=== PATIENT | male | born 1975 | race Caucasian/White ===

== ENCOUNTER 2024-09-19 15:29 | Inpatient (IN) | payer BC, SELFPAY ==
--- NOTE | ~2024-09-19 | CT_ITS ---
EXAMINATION: CT abdomen pelvis w con DATE: 09/19/2024 18:01 INDICATION: lower abd pain TECHNIQUE: Computed tomography (CT) of the abdomen and pelvis was performed with 100 mL Omnipaque-350 intravenous contrast. Automated exposure control and iterative reconstruction technique were employe d. The dose-length product was 578.48 mGy-cm. COMPARISON: None. FINDINGS: Lower thorax: Unremarkable Liver: Normal. Biliary/Gallbladder: Gallbladder is normal. No bile duct dilation. Pancreas: No mass or duct dilation. Spleen: Normal. Adrenals:No mass. Kidneys: No suspicious mass, obstructing stone, or hydronephrosis. Subsegmental bilateral hypodensiti es, too small to characterize but most likely represent cysts. Accessory renal vessels bilaterally. GI tract: Mild distal esophageal wall edema. No large bowel dilation. Loops of mildly dilated and bor derline dilated small bowel in the left upper abdomen, with prominent adjacent lymph nodes, and mesen teric edema. Surgically absent appendix. Scattered diverticuli. Short segment proximal sigmoid wall t hickening, with a 1.2 cm fluid density mildly rim-enhancing collection in the bowel wall, and irregul ar 1.9 x 0.9 cm extraluminal gas collection, and moderate surrounding inflammatory changes. Mesentery/Peritoneum: No ascites, mass, or free air. Retroperitoneum: No mass. Pelvis: Pelvic organs are within normal limits. Soft Tissues: Small uncomplicated fat-containing umbilical hernia. Bones: No acute osseous finding. IMPRESSION: Mild esophagitis. Complicated sigmoid diverticulitis with contained perforation and possible early intramural abscess. Proximal small bowel dilation, probably related to ileus/enteritis. Early obstruction not excluded. Reviewed, dictated and finalized at location K. IMPRESSION: Mild esophagitis. Complicated sigmoid diverticulitis with contained perforation and possible trever y intramural abscess. Proximal small bowel dilation, probably related to ileus/enteritis. Early obstr uction not excluded.
--- OUTSIDE RECORDS SUMMARY | 2024-09-19 15:31 | XMS_ITS | Referral Summary ---
Author Organization [address] [facility] [employer] Address [address] [place] [id number] Care Team Providers Care Outsole Molder Name Role Phone Booker Moran MD Primary Care Provider [phone] Encounters Date Type Department Care Team Description 09/19/2024 2:30 PM CDT Office Visit [facility] [place] [address] [place] [address] Melanie Hamm, EVERARDO Abdominal pain (Primary Dx); Urine ketones from Last 3 Months Allergies No known active allergies Medications testosterone cypionate (DEPO-TESTOTERO NE) 200 mg/mL injection INJECT 0.5 ML( 100 MG) IN THE MUSCLE ONCE A WEEK DIRECTED 10 mL 02/04/2023 Active Active Problems Problem Noted Date Diagnosed Date Acute appendicitis 04/24/2020 Assessment & Plan (04/30/2020 9:47 AM LEAN MANUFACTURING LEADER): Pathology reviewed as appendicitis. ASHLEY drain will be removed at bedside. Given the appendicitis in age of 43 I have discussed a colonoscopy may not be a bad idea just to ensure no underlying colonic pathology as the cause of the appendicitis. He is in understanding. Would continue light duty for further week and then slowly ease back into things. Triceps tendinitis 12/17/2014 Testicular hypofunction 09/23/2013 Overview (08/12/2016): TESTICULAR HYPOFUNC NEC Assessment & Plan (04/30/2022 12:29 PM LEAN MANUFACTURING LEADER): Chronic problem, overall stable. Will update testosterone rx at this time but he needs to have labs drawn as his CBC was borderline elevated last year. He understands. Will mail him lab slips. Assessment & Plan (01/16/2021 3:18 PM CDT): Increase CV with elevated H/H form T was discussed Pt would like to continue current dose of T Will recheck H/H in 3 m, if persistently elevated, will have to lower dose. Assessment & Plan (02/13/2020 4:13 PM CDT): Increase testosterone to 100 mg week Will check CBC in 3 months Assessment & Plan (03/29/2019 5:13 PM LEAN MANUFACTURING LEADER): Check CBC, PSA, T levels Continue T replacement. Assessment & Plan (02/22/2018 3:48 PM CDT): Check cbc, cmp Continue T replacement. 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 Immunizations Immunization Administration Dates Next Due Influenza, Split 04/19/2013,02/04/2010 Influenza, Unspecified 04/24/2020(Deferred: Kallie ent Refused) Social History Tobacco Use Types Packs/Day Years Used Date Smoking Tobacco: Never Tobacco Cessation:Counseling Given: Not Answered Alcohol Use Standard Drinks/Week Comments Yes 0 (1 standard drink = 0.6 oz pur e alcohol) PHQ-2 Answer Date Recorded PHQ-2 Total Score (If total score is 3 or more points, staff should administer the PHQ-9) 0 04/24/2020 Sex and Gender Information Value Date Recorded Sex Assigned at Not on file Legal Sex Male 11:53 PM LEAN MANUFACTURING LEADER Gender Identity Not on file Sexual Orientation Not on file Last Filed Vital Signs Vital Sign Reading Time Taken Comments Blood Pressure 130/88 09/19/2024 2:39 PM CDT Pulse 116 09/19/2024 2:39 PM CDT Temperature 36.9 C (98.4 F) 09/19/2024 2:39 PM CDT Respiratory Rate 16 09/19/2024 2:39 PM CDT Oxygen Saturation 98% 09/19/2024 2:39 PM CDT Inhaled Oxygen Concentration - - Weight 93 kg (205 lb) 09/19/2024 2:39 PM CDT Height 188 cm (6' 2 ) 09/19/2024 2:39 PM CDT Body Mass Index 26.32 09/19/2024 2:39 PM CDT Plan of Treatment Not on file Procedures Procedure Name Priority Date/Time Associated Diagnosis Comments POCT GLUCOSE Routine 09/19/2024 3:00 PM CDT Abdominal pain POCT URINALYSIS DIPSTICK Routine 09/19/2024 2:52 PM CDT Abdominal pain PSA SCREEN Routine 11/26/2022 11:44 AM CDT from Last 3 Months or Most Recently Relevant to Health Maintenance Results * POCT glucose (09/19/2024 3:00 PM CDT) Glucose Blood, POC 111 Normal Fasting 70 - 100, Random <200 mg/dL Blood 09/19/2024 3:00 PM CDT Melanie Hamm NP POINT OF CARE TEST ORDERABLES Fi nal Result * (ABNORMAL) POCT urinalysis dipstick (09/19/2024 2:52 PM CDT) Color, Urine, POC Yellow Clarity, ur, POC Clear Clear Glucose, ur, POC Negative Negative Bilirubin, ur, POC Negative Negative Ketones, ur, POC Trace(A) Negative Specific [place], POC 1.020 1.003 - 1.030 Blood, ur, POC Trace(A) Negative pH, ur, POC 7.5 5.0 - 8.0 Protein, ur, POC 30.(A) Negative Urobilinogen, urine, POC 1.0 0.2 - 1.0 mg/dL Nitrite, ur, POC Negative Negative Leukocytes, ur, POC Negative Negative Lot Number [id number] Urine 09/19/2024 2:52 PM CDT Melanie Hamm NP POINT OF CARE TEST ORDERABLES Fi nal Result * PSA screen (11/26/2022 11:44 AM CDT) PSA 0.34 < OR = 4.00 ng/mL [facility] Comment: The total PSA value from this assay system is standardized against the WHO standard. The test result will be approximately 20% lower when compared to the equimolar-standardized total PSA (Radha Cipriano). Comparison of serial PSA results should be interpreted with this fact in mind. This test was performed using the Siemens chemiluminescent method. Values obtained from different assay methods cannot be used interchangeably. PSA levels, regardless of value, should not be interpreted as absolute evidence of the presence or absence of disease. 11/26/2022 11:4 4 AM CDT 11/26/2022 11:46 AM CDT Melanie Solorzano MD LAB BLOOD ORDERABLES Final Resul t [facility] [address] [place] [address] from Last 3 Months or Most Recently Relevant to Health Maintenance Insurance [facility] PPO [place] Advance Directives For more information, please contact: [phone] * Full Code (Latest Code Status on File) Date Activated Date Inactivated Comments 04/24/2020 8:43 PM 04/25/2020 1:54 PM Care Teams Outsole Molder Relationship Specialty Start Date End Date Booker Moran MD PCP - General 08/07/16
--- OUTSIDE RECORDS SUMMARY | 2024-09-19 15:31 | XMS_ITS | Encounter Summary ---
Author Organization [facility] Healthcare Address [address] [place] [id number] Care Team Providers Care Route Rider Supervisor Name Role Phone Booker Moran MD Primary Care Provider [phone] Reason for Visit * Reason Comments Abdominal Pain Lower abd pain. Onse t yesterday Encounter Details Date Type Department Care Team ([facility] st Contact Info) Description 09/19/2024 2:30 PM CDT Office Visit [facility] [place] [address] [place] [address] Melanie Hamm, EVERARDO [address] [facility] [place] [address] Abdominal pain (Primary Dx); Urine ketones Social History Tobacco Use Types Packs/Day Years Used Date Smoking Tobacco: Never Alcohol Use Standard Drinks/Week Comments Yes 0 (1 standard drink = 0.6 oz pur e alcohol) PHQ-2 Answer Date Recorded PHQ-2 Total Score (If total score is 3 or more points, staff should administer the PHQ-9) 0 04/24/2020 Sex and Gender Information Value Date Recorded Sex Assigned at Not on file Legal Sex Male 11:53 PM PETROLEUM REFINERY OPERATOR Gender Identity Not on file Sexual Orientation Not on file documented as of this encounter Last Filed Vital Signs Vital Sign Reading [...] Mass Index 26.32 09/19/2024 2:39 PM CDT documented in this encounter Patient Instructions * Patient Instructions* Melanie Hamm NP - 09/19/2024 2:30 PM CDT Go immediately to ED for further workup documented in this encounter Plan of Treatment Not on file documented as of this encounter Procedures Procedure Name Priority Date/Time Associated Diagnosis Comments POCT GLUCOSE Routine 09/19/2024 3:00 PM CDT Abdominal pain POCT URINALYSIS DIPSTICK Routine 09/19/2024 2:52 PM CDT Abdominal pain documented in this encounter Results * POCT glucose (09/19/2024 3:00 PM CDT) Pathologist [facility] Glucose Blood, POC 111 Normal Fasting 70 - 100, Random <200 mg/dL Blood 09/19/2024 3:00 PM CDT Melanie Hamm NP POINT OF CARE TEST ORDERABLES Fi nal Result * (ABNORMAL) POCT urinalysis dipstick (09/19/2024 2:52 PM CDT) Color, Urine, POC Yellow Clarity, ur, POC Clear Clear Glucose, ur, POC Negative Negative Bilirubin, ur, POC Negative Negative Ketones, ur, POC Trace(A) Negative Specific [place], POC 1.020 1.003 - 1.030 Blood, ur, POC Trace(A) Negative pH, ur, POC 7.5 5.0 - 8.0 Protein, ur, POC 30.(A) Negative Urobilinogen, urine, POC 1.0 0.2 - 1.0 mg/dL Nitrite, ur, POC Negative Negative Leukocytes, ur, POC Negative Negative Lot Number [id number] Urine 09/19/2024 2:52 PM CDT Melanie Hamm FINISH OFF OPERATOR POINT OF CARE TEST ORDERABLES Fi nal Result documented in this encounter Visit Diagnoses Diagnosis Abdominal pain- Primary Abdominal pain, unspecified site Urine ketones documented in this encounter Care Teams Route Rider Supervisor Relationship Specialty Start Date End Date Booker Moran MD PCP - General 08/07/16 documented as of this encounter
--- OUTSIDE RECORDS SUMMARY | 2024-09-19 15:31 | XMS_ITS | Clinical Summary ---
Author Organization [facility] [address] [facility] [employer] Address [address] [place] [address] Care Team Providers Care Senior Storage Administrator Name Role Phone Booker Moran MD Primary Care Provider [phone] Allergies No known active allergies Medications testosterone cypionate (DEPO-TESTOTERO NE) 200 mg/mL injection INJECT 0.5 ML( 100 MG) IN THE MUSCLE ONCE A WEEK DIRECTED 10 mL 02/04/2023 Active Active Problems Problem Noted Date Diagnosed Date Acute appendicitis 04/24/2020 Assessment & Plan (04/30/2020 9:47 AM MANUFACTURING ASSISTANT): Pathology reviewed as appendicitis. ASHLEY drain will [...] NEC Assessment & Plan (04/30/2022 12:29 PM MANUFACTURING ASSISTANT): Chronic problem, overall stable. Will update testosterone [...] months Assessment & Plan (03/29/2019 5:13 PM MANUFACTURING ASSISTANT): Check CBC, PSA, T levels Continue T replacement. Assessment & Plan (02/22/2018 3:48 PM CDT): Check cbc, cmp Continue T replacement. 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 Encounters Date Type Department Care Team Description 09/19/2024 2:30 PM CDT Office Visit [facility] [place] [address] [place] [address] Melanie Hamm, EVERARDO Abdominal pain (Primary Dx); Urine ketones from Last 3 Months Immunizations Immunization Administration Dates Next Due Influenza, Split 04/19/2013,02/04/2010 Influenza, Unspecified 04/24/2020(Deferred: Kallie ent Refused) Surgical History Surgery Date Site/Laterality Comments OTHER SURGICAL HISTORY Left Arthroscopic Knee Surgery OTHER SURGICAL HISTORY Tubes in ears as child KNEE SURGERY Knee surgery TONSILLECTOMY Tonsillectomy TONSILLECTOMY MENISCECTOMY HERNIA REPAIR APPENDECTOMY 04/24/2020 Medical History Medical History Date Comments Hx Other Medical NOT CLAUSTROPHO BIC; Comments: TESFAYE 01/23/2014 - Family History Medical History Relation Name Comments Other Other 1 No family histo ry of Diabetes mellitus; Other Other 2 No family histo ry of thyroid disease; Relation Name Status Comments Other 1 Other 2 Social History Tobacco Use Types Packs/Day Years [...] on file Legal Sex Male 11:53 PM MANUFACTURING ASSISTANT Gender Identity Not on file Sexual Orientation Not on file Obstetrics History Last Filed Vital Signs Vital Sign Reading [...] 09/19/2024 2:39 PM CDT Plan of Treatment Health Maintenance Due Date Last Done Comments Colon Cancer Screening-Colonoscopy 1974 Hepatitis C Screening 1974 DTaP/Tdap/Td Vaccine (1 - Tdap) 1985 Hepatitis B Screening 1992 Regular Well Visit/Exam 18-64 1992 Depression Screening 04/24/2021 04/24/2020, 02/13/2020, 03/28/2019, Additional history exists Zoster Vaccine (1 of 2) 2024 Prostate Cancer Screening-PSA 11/26/2024 11/26/2022, 12/22/2019 Influenza Vaccine (Season Ended) 2025 04/19/2013, 02/04/2010 Pneumococcal vaccine <65 Aged Out No longer eligible based on patient's age to complete this topic Procedures Procedure Name Priority Date/Time Associated Diagnosis Comments POCT GLUCOSE Routine 09/19/2024 3:00 PM CDT Abdominal pain POCT URINALYSIS DIPSTICK Routine 09/19/2024 2:52 PM CDT Abdominal pain PSA SCREEN Routine 11/26/2022 11:44 AM CDT from Last 3 Months or Most Recently Relevant to Health Maintenance Results * POCT glucose (09/19/2024 3:00 PM CDT) [facility] Glucose Blood, POC 111 Normal Fasting 70 - 100, Random <200 mg/dL Blood 09/19/2024 3:00 PM CDT [facility] POINT OF CARE TEST ORDERABLES Fi nal Result * (ABNORMAL) POCT urinalysis dipstick (09/19/2024 2:52 PM CDT) [facility] Color, Urine, POC Yellow Clarity, ur, POC Clear Clear Glucose, ur, POC Negative Negative Bilirubin, ur, POC Negative Negative Ketones, ur, POC Trace(A) Negative Specific [place], POC 1.020 1.003 - 1.030 Blood, ur, POC Trace(A) Negative pH, ur, POC 7.5 5.0 - 8.0 Protein, ur, POC 30.(A) Negative Urobilinogen, urine, POC 1.0 0.2 - 1.0 mg/dL Nitrite, ur, POC Negative Negative Leukocytes, ur, POC Negative Negative Lot Number [id number] Urine 09/19/2024 2:52 PM CDT [facility] POINT OF CARE TEST ORDERABLES Fi nal Result * PSA screen (11/26/2022 11:44 AM CDT) [facility] PSA 0.34 < OR = 4.00 ng/mL [facility] Comment: The total PSA value from this assay system is standardized against the WHO standard. The test result will be approximately 20% lower when compared to the equimolar-standardized total PSA (Radha [place]). Comparison of serial PSA results should be [...] MD LAB BLOOD ORDERABLES Final Resul t [facility] [address] [place] [id number] from Last 3 Months or Most Recently Relevant to Health Maintenance Insurance [facility] PPO [facility] Advance Directives For more information, please contact: [phone] * Full Code (Latest Code Status on File) Date Activated Date Inactivated Comments 04/24/2020 8:43 PM 04/25/2020 1:54 PM Care Teams Senior Storage Administrator Relationship Specialty Start Date End Date Booker Moran MD PCP - General 08/07/16
[2024-09-19 15:40] VITALS: BP 142/82; PULSE 112; RESP 16; TEMP 36.9; O2SAT 100
--- NOTE | 2024-09-19 15:47 | ED.ABDPAIN ---
HPI - Abdominal Pain General Chief Complaint: Abdominal Pain <Elvia Cota PA-C - Last Filed: 09/19/24 15:48> Stated Complaint: abdominal pain <Elvia Cota PA-C - Last Filed: 09/19/24 15:48> Time Seen by Provider: 09/19/24 17:06 <Elvia Cota PA-C - Last Filed: 09/19/24 15:48> Focused HPI: 49-year-old male presents to the emergency department for lower abdominal pain for the past day. Patient reports associated diarrhea and subjective fever. States his pain is worse when he drives over bumps in the road. [facility] to [facility] and was sent to the ED for further evaluation. States they noted some microscopic blood in his urine. He denies history of kidney stones. Had some flank pain last night which has since resolved. Denies dysuria, gross hematuria, nausea or vomiting. Endorses prior history of appendectomy 4 years ago. GENERAL: Well-appearing, well-nourished, and in no acute distress. HEAD: Normocephalic, atraumatic. CHEST: Clear to auscultation. No respiratory distress. ABD: Normoactive bowel sounds. Abdomen soft with tenderness to the suprapubic region and diffusely to the lower abdomen. No rebound or rigidity. No CVA tenderness. HEART: Regular rate and rhythm. NEURO: Alert and oriented x3. Patient screened in triage and initial orders placed. Additional care and disposition to be based upon diagnostic testing and treatment. <Elvia Cota PA-C - Last Filed: 09/19/24 15:48> Focused HPI: 49-year-old male presents to the emergency department for lower abdominal pain for the past day. Patient reports associated diarrhea and subjective fever. States his pain is worse when he drives over bumps in the road. He went to [facility] and was sent to the ED for further evaluation. States they noted some microscopic blood in his urine. He denies history of kidney stones. Had some flank pain last night which has since resolved. Denies dysuria, gross hematuria, nausea or vomiting. Endorses prior history of appendectomy 4 years ago. GENERAL: Well-appearing, well-nourished, and in no acute distress. HEAD: Normocephalic, atraumatic. CHEST: Clear to auscultation. No respiratory distress. ABD: Normoactive bowel sounds. Abdomen soft with tenderness to the suprapubic region and diffusely to the lower abdomen. No rebound or rigidity. No CVA tenderness. HEART: Regular rate and rhythm. NEURO: Alert and oriented x3. Patient screened in triage and initial orders placed. Additional care and disposition to be based upon diagnostic testing and treatment. <AMY Narvaez Last Filed: 09/19/24 19:52> Source: patient <AMY Narvaez Last Filed: 09/19/24 19:52> Mode of arrival: ambulatory <AMY Narvaez Filed: 09/19/24 19:52> Limitations: no limitations <AMY Narvaez Filed: 09/19/24 19:52> History of Present Illness HPI narrative: Agree with above HPI. Has not taken anything for pain. <AMY Narvaez Last Filed: 09/19/24 19:52> Related Data Allergies/Adverse Reactions: Allergies Allergy/AdvReac Type Severity Reaction Status Date / Time No Known Allergies Allergy Verified 09/19/24 15:30 <AMY Aldrich Last Filed: 09/19/24 15:48> Review of Systems Review of Systems: All systems reviewed & are unremarkable except as noted in HPI. <AMY Narvaez Last Filed: 09/19/24 19:52> All systems reviewed & are unremarkable except as noted in HPI and below <AMY Narvaez Last Filed: 09/19/24 19:52> Exam Narrative: GENERAL: Well appearing, well-nourished, non-toxic, in no acute distress. HEAD: Normocephalic, atraumatic. RESPIRATORY: Airway patent, respirations nonlabored. Clear to auscultation bilaterally, no rales, rhonchi, wheezing. CARDIOVASCULAR: Borderline tachycardic with regular rhythm without murmurs, rubs, or gallops. ABDOMINAL: Soft, mild diffuse tenderness throughout lower abdomen, worst in left lower quadrant, no rebound, nondistended. Normoactive BS. MUSCULOSKELETAL: Moves all extremities. No gross deformities. SKIN: Warm, dry, normal color. NEURO: A&O X3. Speech clear. Cranial nerves II-XII grossly intact. Steady gait. No ataxic movements. PSYCHIATRIC: Appropriate mood and affect. Normal interaction. <Leesa Hurst PA-C - Last Filed: 09/19/24 19:52> Course Vital Signs Vital signs: Vital Signs Temperature 98.4 F 09/19/24 15:40 Pulse Rate 112 H 09/19/24 15:40 Respiratory Rate 16 09/19/24 15:40 Blood Pressure 142/82 H 09/19/24 15:40 Pulse Oximetry 100 09/19/24 15:40 Oxygen Delivery Room Air 09/19/24 15:40 Temperature 98.4 F 09/19/24 15:40 Pulse Rate 112 H 09/19/24 15:40 Respiratory Rate 16 09/19/24 15:40 Blood Pressure 142/82 H 09/19/24 15:40 Pulse Oximetry 100 09/19/24 15:40 Oxygen Delivery Room Air 09/19/24 15:40 <Elvia Cota PA-C - Last Filed: 09/19/24 15:48> Vital Signs Temperature 98.4 F 09/19/24 15:40 Pulse Rate 112 H 09/19/24 15:40 Respiratory Rate 16 09/19/24 15:40 Blood Pressure 142/82 H 09/19/24 15:40 Pulse Oximetry 100 09/19/24 15:40 Oxygen Delivery Room Air 09/19/24 15:40 Temperature 98.4 F 09/19/24 15:40 Pulse Rate 112 H 09/19/24 15:40 Respiratory Rate 16 09/19/24 15:40 Blood Pressure 142/82 H 09/19/24 15:40 Pulse Oximetry 100 09/19/24 15:40 Oxygen Delivery Room Air 09/19/24 15:40 <Leesa Hurst PA-C - Last Filed: 09/19/24 19:52> MDM - Abdominal Pain MDM Narrative Medical decision making narrative: Patient presented to ED with lower abdominal pain since yesterday. Reports some associated diarrhea, subjective fevers. Patient tachycardic upon arrival, afebrile here. Cbc with blood cell count of 16.4. Neutrophil predominance. No bandemia. Stable H&H. CMP unremarkable. UA with 3+ ketones, very small amount of RBC. No signs of infection. Fluids are ongoing. Lactic acid WNL. CT scan of abdomen/pelvis was obtained and showing complicated sigmoid diverticulitis with contained perforation, possible developing early intramural abscess - 1.2cm. Does also show proximal small-bowel dilation, ileus/enteritis versus early obstruction. Discussed lab and imaging findings with patient. He denies any previous history of diverticulitis. Blood cultures obtained. Zosyn started in the ED. Discussed case with Dr. Ferreira, hospitalist, accepted patient for admission under his service, clear liquid diet. Patient in agreement with plan and need for admission. All questions answered. Patient has not wanted or required anything for pain throughout my care. There are p.r.n. pain medications ordered. <Leesa Hurst PA-C - Last Filed: 09/19/24 19:52> Medical Records Attestation: I reviewed the patient's medical records. <AMY Narvaez Last Filed: 09/19/24 19:52> Lab Data Attestation: I reviewed the patient's lab results. <Leesa Hurst PA-C - Last Filed: 09/19/24 19:52> Result diagrams: 09/19/24 16:36 09/19/24 16:36 <AMY Aldrich Last Filed: 09/19/24 15:48> Labs: Lab Results 09/19/24 Range/Units 16:36 WBC 16.4 H (4.5-10.0) K/mm3 RBC 5.34 (4.6-6.20) M/mm3 Hgb 17.0 (14.0-18.0) g/dL Hct 52.6 H (42.0-52.0) % MCV 98.5 (80-100) fl MCH 31.8 (26-34) pg MCHC 32.3 (32-36) g/dl RDW 12.3 (11.5-14.5) % Plt Count 212 (150-375) k/mm3 MPV 8.7 (7.4-10.4) fl Immature Gran % (Auto) 0.5 (0-0.5) % Neut % (Auto) 83.3 H (45.5-73.1) % Lymph % (Auto) 10.3 L (18.3-44.2) % [place] % (Auto) 5.3 (2.6-8.5) % Eos % (Auto) 0.4 (0-4.4) % Baso % (Auto) 0.2 (0.2-1.2) % Lymph # (Auto) 1.68 (0.9-3.2) K/mm3 [place] # (Auto) 0.9 H (0.1-0.6) K/mm3 Eos # (Auto) 0.1 (0-0.3) K/mm3 Baso # (Auto) 0.0 (0.0-0.1) K/mm3 Abs Immat Gran (auto) 0.09 H (0.00-0.031) K/mm3 Absolute Neuts (auto) 13.6 H (1.3-6.7) K/mm3 Absolute Nucleated RBC 0.000 (0.0-0.012) K/mm3 Nucleated RBC % 0.0 (0.0-0.2) % Sodium 138 (137-145) mmol/L Potassium 4.2 (3.4-5.0) mmol/L Chloride 100 (98-107) mmol/L Carbon Dioxide 29 (22-30) mmol/L Anion Gap 9 (4-12) mmol/L BUN 18 (9-20) mg/dL Creatinine 1.07 (0.7-1.3) mg/dL Estim Creat Clear Calc 85 ml/min Estimated GFR > 60 (59 - ) Glucose 94 (65-110) mg/dL Calcium 9.0 (8.4-10.2) mg/dL Total Bilirubin 0.9 (0.2-1.3) mg/dL AST 32 (17-59) U/L ALT 22 (6-50) U/L Alkaline Phosphatase 59 (38-126) U/L Total Protein 8.0 (6.3-8.2) g/dL Albumin 4.7 (3.5-5.1) g/dL Lipase 68 (23-300) U/L Urine Color Yellow (Yellow) Urine Appearance Clear (Clear) Urine pH 6.0 (5.0-9.0) Ur Specific [place] 1.021 (1.001-1.035) Urine Protein Negative (Negative) mg/dL Urine Glucose (UA) Negative (Negative) mg/dL Urine Ketones 3+ H (Negative) mg/dL Ur Blood (Man) 1+ H (Negative) Urine Nitrate Negative (Negative) Urine Bilirubin Negative (Negative) Urine Urobilinogen 1.0 (<2.0) mg/dL Leukocyte Esterase Rfl Negative (Negative) TIFFANY/UL Urine RBC 3-5 H (0-2) /hpf Urine WBC 0-5 (0-3) /hpf Ur Squamous Epith Cells None seen (Few) /hpf Urine Bacteria None seen /hpf Urine Casts 0-2 <Elvia Cota PA-C - Last Filed: 09/19/24 15:48> Lab Results 09/19/24 Range/Units 16:36 WBC 16.4 H (4.5-10.0) K/mm3 RBC 5.34 (4.6-6.20) M/mm3 Hgb 17.0 (14.0-18.0) g/dL Hct 52.6 H (42.0-52.0) % MCV 98.5 (80-100) fl MCH 31.8 (26-34) pg MCHC 32.3 (32-36) g/dl RDW 12.3 (11.5-14.5) % Plt Count 212 (150-375) k/mm3 MPV 8.7 (7.4-10.4) fl Immature Gran % (Auto) 0.5 (0-0.5) % Neut % (Auto) 83.3 H (45.5-73.1) % Lymph % (Auto) 10.3 L (18.3-44.2) % [place] % (Auto) 5.3 (2.6-8.5) % Eos % (Auto) 0.4 (0-4.4) % Baso % (Auto) 0.2 (0.2-1.2) % Lymph # (Auto) 1.68 (0.9-3.2) K/mm3 [place] # (Auto) 0.9 H (0.1-0.6) K/mm3 Eos # (Auto) 0.1 (0-0.3) K/mm3 Baso # (Auto) 0.0 (0.0-0.1) K/mm3 Abs Immat Gran (auto) 0.09 H (0.00-0.031) K/mm3 Absolute Neuts (auto) 13.6 H (1.3-6.7) K/mm3 Absolute Nucleated RBC 0.000 (0.0-0.012) K/mm3 Nucleated RBC % 0.0 (0.0-0.2) % Sodium 138 (137-145) mmol/L Potassium 4.2 (3.4-5.0) mmol/L Chloride 100 (98-107) mmol/L Carbon Dioxide 29 (22-30) mmol/L Anion Gap 9 (4-12) mmol/L BUN 18 (9-20) mg/dL Creatinine 1.07 (0.7-1.3) mg/dL Estim Creat Clear Calc 85 ml/min Estimated GFR > 60 (59 - ) Glucose 94 (65-110) mg/dL Calcium 9.0 (8.4-10.2) mg/dL Total Bilirubin 0.9 (0.2-1.3) mg/dL AST 32 (17-59) U/L ALT 22 (6-50) U/L Alkaline Phosphatase 59 (38-126) U/L Total Protein 8.0 (6.3-8.2) g/dL Albumin 4.7 (3.5-5.1) g/dL Lipase 68 (23-300) U/L Urine Color Yellow (Yellow) Urine Appearance Clear (Clear) Urine pH 6.0 (5.0-9.0) Ur Specific [place] 1.021 (1.001-1.035) Urine Protein Negative (Negative) mg/dL Urine Glucose (UA) Negative (Negative) mg/dL Urine Ketones 3+ H (Negative) mg/dL Ur Blood (Man) 1+ H (Negative) Urine Nitrate Negative (Negative) Urine Bilirubin Negative (Negative) Urine Urobilinogen 1.0 (<2.0) mg/dL Leukocyte Esterase Rfl Negative (Negative) TIFFANY/UL Urine RBC 3-5 H (0-2) /hpf Urine WBC 0-5 (0-3) /hpf Ur Squamous Epith Cells None seen (Few) /hpf Urine Bacteria None seen /hpf Urine Casts 0-2 <Leesa N. Gaudreault, PA-C - Last Filed: 09/19/24 19:52> Imaging Data Attestation: I personally reviewed and interpreted this imaging study as follows: <AMY Narvaez Last Filed: 09/19/24 19:52> Radiologist's impression: ITS Impressions Abdomen/Pelvis CT 09/19/24 18:03 IMPRESSION: Mild esophagitis. Complicated sigmoid diverticulitis with contained perforation and possible early intramural abscess. Proximal small bowel dilation, probably related to ileus/enteritis. Early obstruction not excluded. <AMY Aldrich Last Filed: 09/19/24 15:48> ITS Impressions Abdomen/Pelvis CT 09/19/24 18:03 IMPRESSION: Mild esophagitis. Complicated sigmoid diverticulitis with contained perforation and possible early intramural abscess. Proximal small bowel dilation, probably related to ileus/enteritis. Early obstruction not excluded. <AMY Narvaez Last Filed: 09/19/24 19:52> Discharge Plan Discharge Clinical Impression: Abscess of sigmoid colon due to diverticulitis, Perforation of sigmoid colon due to diverticulitis, Ileus <AMY Aldrich Last Filed: 09/19/24 15:48> Patient Disposition: Still a Patient <AMY Aldrich Filed: 09/19/24 15:48> Condition: Stable <AMY Aldrich Last Filed: 09/19/24 15:48>
[2024-09-19 16:44] LABS: Basophils Percent Auto 0.2 % (0.2-1.2); Eosinophils Absolute Auto 0.1 K/mm3 (0-0.3); Eosinophils Percent Auto 0.4 % (0-4.4); Hematocrit 52.6 % (42.0-52.0); Immature Granulocyte Absolute 0.09 K/mm3 (0.00-0.031); Immature Granulocyte Percent A 0.5 % (0-0.5); Lymphocytes Absolute Auto 1.68 K/mm3 (0.9-3.2); Lymphocytes Percent Auto 10.3 % (18.3-44.2); Mean Corpuscular HGB Conc 32.3 g/dl (32-36); Mean Corpuscular Hemoglobin 31.8 pg (26-34); Mean Corpuscular Volume 98.5 fl (80-100); Mean Platelet Volume 8.7 fl (7.4-10.4); Monocytes Absolute Auto 0.9 K/mm3 (0.1-0.6); Monocytes Percent Auto 5.3 % (2.6-8.5); Neutrophils Absolute Auto 13.6 K/mm3 (1.3-6.7); Neutrophils Percent Auto 83.3 % (45.5-73.1); Platelet Count Result 212 k/mm3 (150-375); Red Blood Count 5.34 M/mm3 (4.6-6.20); Red Cell Distribution Width 12.3 % (11.5-14.5); White Blood Count 16.4 K/mm3 (4.5-10.0)
[2024-09-19 16:48] LABS: Add Urine Microscopic? YES; Appearance Urine Clear (Clear); Bacteria Urine None Seen /hpf; Bilirubin Urine Negative (Negative); Blood Urine 1+ (Negative); Color Urine Yellow (Yellow); Glucose Urine UA Negative (Negative); Ketones Urine 3+ mg/dL (Negative); Leukocyte Esterase Ur Negative LEU/UL (Negative); Nitrate Urine Negative (Negative); Non Pathogenic Casts 0-2; Protein Urine Negative (Negative); Specific Grav Ur 1.021 (1.001-1.035); Squamous Epithelial Cell Urine None Seen /hpf (Few); WBC Urine 0-5 /hpf (0-3)
[2024-09-19 16:55] LABS: Alanine Aminotransferase 22 U/L (6-50); Albumin Level 4.7 g/dL (3.5-5.1); Alkaline Phosphatase 59 U/L (38-126); Anion Gap 9 mmol/L (4-12); Aspartate Amino Transferase 32 U/L (17-59); Bilirubin,Total 0.9 mg/dL (0.2-1.3); Blood Urea Nitrogen 18 mg/dL (9-20); Carbon Dioxide 29 mmol/L (22-30); Chloride 100 mmol/L (98-107); Estimated CRCL calculation 85 ml/min; Estimated Glomerular Filt Rate > 60; Glucose 94 mg/dL (65-110); Lipase 68 U/L (23-300); Potassium 4.2 mmol/L (3.4-5.0); Sodium 138 mmol/L (137-145)
[2024-09-19] MEDS: SODIUM CHLORIDE 0.9% IV 1,000 ML 999 ML IV CONT (17:37)
--- OUTSIDE RECORDS SUMMARY | 2024-09-19 18:15 | XMS_ITS | Clinical Summary ---
Author Organization [facility] Address [address] [place] [address] Care Team Providers Care Attendant Honor Bar Name Role Phone Unavailable Primary Care Provider Unavailabl e Source Comments [facility] [employer],non-owned Affiliates and Associated Physician Practices is amultiple site organization consisting of ambulatory clinics and hospital sitesin [place], [place], [place] and [place]. This disclosure is being madepursuant to the Care Everywhere program and may not contain all information available regarding this patient. 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 Gender Identity Not on file Sexual Orientation Not on file Plan of Treatment Health Maintenance Due Date Last Done Comments COLOGUARD (AGES 45-75) - COL ON CA SCREENING 1974 COLON MONITORING 1974 COLONOSCOPY - COLON CA SCREENING 1974 CT COLONOGRAPHY - COLON CA SCREENING 1974 Colorectal Cancer Screening 1974 FIT - COLON CA SCREENING 1974 FLEX SIG - COLON CA SCREENING 1974 LIPID TESTING 1974 HIV SCREENING 1989 HEPATITIS C SCREENING 07/01/1992 DTAP/TDAP/TD VACCINES (1 - Tdap) 1993 HEPATITIS B VACCINE (1 of 3 - 19+ 3-dose series) 1993 COVID-19 VACCINE (1 - 2023-2 5 season) 2024 DEPRESSION SCREENING 05/10/2024 PNEUMOCOCCAL VACCINE 50+ (1 of 1 - PCV) 2024 ZOSTER VACCINE (1 of 2) 2024 INFLUENZA VACCINE (Season Ended) 2025 HIB VACCINE Aged Out No longer eligi ble based on patient's age to complete this topic HPV VACCINE Aged Out No longer eligi ble based on patient's age to complete this topic MENINGOCOCCAL (Group B) VACC INE SHARED DECISION-MAKING Aged Out No longer eligibl e based on patient's age to complete this topic MENINGOCOCCAL GROUPS A/C/Y/W VACCINE Aged Out No longer eligible b ased on patient's age to complete this topic
--- OUTSIDE RECORDS SUMMARY | 2024-09-19 18:15 | XMS_ITS | Encounter Summary ---
Author Organization [facility] Healthcare Address [address] [place] [id number] Care Team Providers Care Batch Unit Treater Name Role Phone Booker Moran MD Primary Care Provider [phone] Reason for Visit * Reason Comments Abdominal Pain Lower abd pain. 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 Gender Identity Not on file Sexual Orientation [...] POCT glucose (09/19/2024 3:00 PM CDT) Pathologist [facility] Glucose Blood, POC 111 Normal Fasting 70 - 100, Random <200 mg/dL Blood 09/19/2024 3:00 PM CDT Melanie Hamm NP POINT OF CARE TEST ORDERABLES Fi nal Result * (ABNORMAL) POCT urinalysis dipstick (09/19/2024 2:52 PM CDT) Color, Urine, POC Yellow Clarity, ur, POC Clear Clear Glucose, ur, POC Negative Negative Bilirubin, ur, POC Negative Negative Ketones, ur, POC Trace(A) Negative Specific [place], POC 1.020 1.003 - 1.030 Blood, ur, POC Trace(A) Negative pH, ur, POC 7.5 5.0 - 8.0 Protein, ur, POC 30.(A) Negative Urobilinogen, urine, POC 1.0 0.2 - 1.0 mg/dL Nitrite, ur, POC Negative Negative Leukocytes, ur, POC Negative Negative Lot Number [id number] Urine 09/19/2024 2:52 PM CDT Melanie Hamm TURRET LATHE TENDER POINT OF CARE TEST ORDERABLES Fi nal Result documented in this encounter Visit Diagnoses Diagnosis Abdominal pain- Primary Abdominal pain, unspecified site Urine ketones documented in this encounter Care Teams Batch Unit Treater Relationship Specialty Start Date End Date Booker Moran MD PCP - General 08/07/16 documented as of this encounter
--- OUTSIDE RECORDS SUMMARY | 2024-09-19 18:15 | XMS_ITS | Referral Summary ---
Author Organization [address] [facility] [place] Address [address] [place] [id number] Care Team Providers Care Media Marketing Manager Name Role Phone Booker Moran MD Primary Care Provider [phone] Encounters Date Type Department Care Team Description 09/19/2024 2:30 PM CDT Office Visit [facility] [place] [address] [place] [address] Melanie Hamm, EVERARDO Abdominal pain (Primary Dx); Urine ketones from Last 3 Months Allergies No known active allergies Medications testosterone cypionate (DEPO-TESTOTERO NE) 200 mg/mL injection INJECT 0.5 ML( 100 MG) IN THE MUSCLE ONCE A WEEK DIRECTED 10 mL 02/04/2023 Active Active Problems Problem Noted Date Diagnosed Date Acute appendicitis 04/24/2020 Assessment & Plan (04/30/2020 9:47 AM PART TIME FLEXIBLE CLERK): Pathology reviewed as appendicitis. ASHLEY drain will [...] NEC Assessment & Plan (04/30/2022 12:29 PM PART TIME FLEXIBLE CLERK): Chronic problem, overall stable. Will update testosterone [...] months Assessment & Plan (03/29/2019 5:13 PM PART TIME FLEXIBLE CLERK): Check CBC, PSA, T levels Continue T [...] on file Legal Sex Male 11:53 PM PART TIME FLEXIBLE CLERK Gender Identity Not on file Sexual Orientation [...] Negative Ketones, ur, POC Trace(A) Negative Specific [place], POC 1.020 1.003 - 1.030 Blood, ur, POC Trace(A) Negative pH, ur, POC 7.5 5.0 - 8.0 Protein, ur, POC 30.(A) Negative Urobilinogen, urine, POC 1.0 0.2 - 1.0 mg/dL Nitrite, ur, POC Negative Negative Leukocytes, ur, POC Negative Negative Lot Number [id number] Urine 09/19/2024 2:52 PM CDT Melanie Hamm NP POINT OF CARE TEST ORDERABLES Fi nal Result * PSA screen (11/26/2022 11:44 AM CDT) PSA 0.34 < OR = 4.00 ng/mL [facility] Comment: The total PSA value from [...] LAB BLOOD ORDERABLES Final Resul t [facility] [address] [place] [address] from Last 3 Months or Most Recently Relevant to Health Maintenance Insurance [facility] PPO [place] Advance Directives For more information, please contact: [phone] * Full Code (Latest Code Status on File) Date Activated Date Inactivated Comments 04/24/2020 8:43 PM 04/25/2020 1:54 PM Care Teams Media Marketing Manager Relationship Specialty Start Date End Date Booker Moran MD PCP - General 08/07/16
--- OUTSIDE RECORDS SUMMARY | 2024-09-19 18:15 | XMS_ITS | Clinical Summary ---
Author Organization [facility] [address] [facility] [place] Address [address] [place] [address] Care Team Providers Care Copyist Name Role Phone Booker Moran MD Primary Care Provider [phone] Allergies No known active allergies Medications testosterone cypionate (DEPO-TESTOTERO NE) 200 mg/mL injection INJECT 0.5 ML( 100 MG) IN THE MUSCLE ONCE A WEEK DIRECTED 10 mL 02/04/2023 Active Active Problems Problem Noted Date Diagnosed Date Acute appendicitis 04/24/2020 Assessment & Plan (04/30/2020 9:47 AM UNIVERSITY REGISTRAR): Pathology reviewed as appendicitis. ASHLEY drain will [...] NEC Assessment & Plan (04/30/2022 12:29 PM UNIVERSITY REGISTRAR): Chronic problem, overall stable. Will update testosterone [...] months Assessment & Plan (03/29/2019 5:13 PM UNIVERSITY REGISTRAR): Check CBC, PSA, T levels Continue T replacement. Assessment & Plan (02/22/2018 3:48 PM CDT): Check cbc, cmp Continue T replacement. 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 Encounters Date Type Department Care Team Description 09/19/2024 2:30 PM CDT Office Visit [facility] [place] [address] [place] [address] Melanie Hamm, EVERARDO Abdominal pain [...] on file Legal Sex Male 11:53 PM UNIVERSITY REGISTRAR Gender Identity Not on file Sexual Orientation [...] * POCT glucose (09/19/2024 3:00 PM CDT) [facility] Glucose Blood, POC 111 Normal Fasting 70 - 100, Random <200 mg/dL Blood 09/19/2024 3:00 PM CDT [facility] POINT OF CARE TEST ORDERABLES Fi nal Result * (ABNORMAL) POCT urinalysis dipstick (09/19/2024 2:52 PM CDT) [facility] Color, Urine, POC Yellow Clarity, ur, POC Clear Clear Glucose, ur, POC Negative Negative Bilirubin, ur, POC Negative Negative Ketones, ur, POC Trace(A) Negative Specific [place], POC 1.020 1.003 - 1.030 Blood, ur, POC Trace(A) Negative pH, ur, POC 7.5 5.0 - 8.0 Protein, ur, POC 30.(A) Negative Urobilinogen, urine, POC 1.0 0.2 - 1.0 mg/dL Nitrite, ur, POC Negative Negative Leukocytes, ur, POC Negative Negative Lot Number [id number] Urine 09/19/2024 2:52 PM CDT [facility] POINT OF CARE TEST ORDERABLES Fi nal Result * PSA screen (11/26/2022 11:44 AM CDT) [facility] PSA 0.34 < OR = 4.00 ng/mL [facility] Comment: The total PSA value from this assay system is standardized against the WHO standard. The test result will be approximately 20% lower when compared to the equimolar-standardized total PSA (Radha Sterling). Comparison of serial PSA results should be [...] LAB BLOOD ORDERABLES Final Resul t [facility] [address] [address] [address] from Last 3 Months or Most Recently Relevant to Health Maintenance Insurance [facility] PPO [facility] Advance Directives For more information, please contact: [phone] * Full Code (Latest Code Status on File) Date Activated Date Inactivated Comments 04/24/2020 8:43 PM 04/25/2020 1:54 PM Care Teams Copyist Relationship Specialty Start Date End Date Booker Moran MD PCP - General 08/07/16
[2024-09-19] MEDS: PIPERACILLN/TAZ 3.375GM/NS50ML 3.375 GM/50 ML BAG IVPB (19:28)
[2024-09-19 19:46] LABS: Lactic Acid Reflex 0.7 mmol/L (0.7-2.0)
[2024-09-19 20:20] VITALS: BP 134/74; PULSE 103; RESP 17; TEMP 36.9; O2SAT 97; BMI 26.9
[2024-09-19 20:27] VITALS: BMI 26.9
--- NOTE | 2024-09-19 20:33 | ADMGEN ---
This patient, Julius Dong, was admitted to Medical Room 260-. Patient/family oriented to hospital policies and general routines including ID bracelet, bed and alarms, visiting hours, pain management, procedures, bathroom and other care routines, personal items, smoking policy, room service/diet, and visiting hours. Information on how to activate the Rapid Response Team has been discussed. Patient/Family are encouraged to report perceived risks to care and to ask questions if they do not understand what they are told or what they should do.
[2024-09-19] MEDS: ACETAMINOPHEN 325 MG TABLET 650 MG PO (21:24)
[2024-09-19] MEDS: SODIUM CHLORIDE 0.9% IV 1,000 ML 100 ML IV CONT (21:24)
[2024-09-20] MEDS: PIPERACILLN/TAZ 3.375GM/NS50ML 3.375 GM/50 ML BAG IVPB ×4 (02:09→17:37)
[2024-09-20 04:51] VITALS: BP 108/57; PULSE 76; RESP 18; TEMP 36.6; O2SAT 97
[2024-09-20] MEDS: SODIUM CHLORIDE 0.9% IV 1,000 ML 100 ML IV CONT ×2 (06:06→20:00)
--- NOTE | 2024-09-20 07:12 | P.HP_ITS ---
H&P: HPI History of Present Illness Date/Time: 09/20/24 07:12 Chief Complaint: Abdominal pain Narrative: The patient is a 49-year-old male presenting to the emergency department complaining of a 2 day history of worsening lower abdominal pain. The patient reports the pain has been constant and worse with movement. The patient also reports decreased appetite, nausea. The patient denies any fevers or chills. The patient denies any previous similar symptoms. Workup, including imaging, is significant for complicated diverticulitis with micro perforation cysts, small intramural abscess. Review of Systems Review of Systems: All systems reviewed & are unremarkable except as noted in HPI and below PMFSH Social History Social History Smoking status: Never smoker Alcohol intake: current Drinks per week: 2 Substance use: never Do You Feel Safe in your Home?: Yes Lack of Transportation: No Lack of Food: Never True Current Housing: I Have Housing Concerned About Future Housing: No Difficulty Paying Gas/Electric Bills: No Difficulty Paying for Meds: No Currently Unemployed: No Education: Master's Degree or Higher Difficulty w/ Childcare or Family Care: No Spiritual care concerns: No Meds Home Medications and Allergies Home Medications Medication Instructions Recorded Confirmed Type acetaminophen 325 mg tablet 650 mg PO Q4-6H PRN fever or pain 09/19/24 09/19/24 History (Tylenol) diphenhydramine HCl 50 mg/30 mL 25 mg PO HS 09/19/24 09/19/24 History oral liquid (ZzzQuil) ibuprofen 200 mg tablet (Advil) 800 mg PO Q4H PRN pain 09/19/24 09/19/24 History melatonin 5 mg capsule 5 mg PO HS 09/19/24 09/19/24 History testosterone 100 mg/mL 1.74 mg IM DAILY 09/19/24 09/19/24 History intramuscular suspension Allergies Allergy/AdvReac Type Severity Reaction Status Date / Time No Known Allergies Allergy Verified 09/19/24 15:30 Vital Signs Vital Signs - 24 hr 09/19/24 15:40 09/19/24 20:20 09/19/24 21:00 Temperature 36.9 C 36.9 C Pulse Rate 112 H 103 H Respiratory Rate 16 17 Blood Pressure 142/82 H 134/74 Pulse Oximetry 100 97 Oxygen Delivery Room Air Room Air 09/20/24 04:51 Temperature 36.6 C Pulse Rate 76 Respiratory Rate 18 Blood Pressure 108/57 L Pulse Oximetry 97 Oxygen Delivery Exam Const: General: cooperative, healthy appearing, comfortable and no acute distress HENMT: Head: normal to inspection, normocephalic and atraumatic Eyes: General: appearance normal, both eyes and all related structures Neck: Neck: normal visual inspection and no lymphadenopathy Resp: Auscultation: clear to auscultation bilaterally Cardio: Rate: regular rate Rhythm: regular rhythm GI: Inspection: normal to inspection and non-distended GI Palp: Yes abdominal tenderness, Yes Soft to palpation, No Guarding due to palpation present (GI) and No Rigid due to palpation Skin: General skin exam: normal color and no rashes or lesions noted Neuro: General: patient oriented x3 and CN's II-XI intact bilaterally Extrem: General: normal to inspection and full ROM H&P: Results Labs Labs: Short CBC 09/19/24 Range/Units 16:36 WBC 16.4 H (4.5-10.0) K/mm3 Hgb 17.0 (14.0-18.0) g/dL Hct 52.6 H (42.0-52.0) % Plt Count 212 (150-375) k/mm3 BMP 09/19/24 16:36 Sodium 138 Potassium 4.2 Chloride 100 Carbon Dioxide 29 BUN 18 Creatinine 1.07 Glucose 94 Calcium 9.0 Liver Function 09/19/24 Range/Units 16:36 Total Bilirubin 0.9 (0.2-1.3) mg/dL AST 32 (17-59) U/L ALT 22 (6-50) U/L Alkaline Phosphatase 59 (38-126) U/L Albumin 4.7 (3.5-5.1) g/dL Urine 09/19/24 Range/Units 16:36 Urine Color Yellow (Yellow) Urine Appearance Clear (Clear) Urine pH 6.0 (5.0-9.0) Ur Specific [place] 1.021 (1.001-1.035) Urine Protein Negative (Negative) mg/dL Urine Glucose (UA) Negative (Negative) mg/dL Imaging CT scan - abdomen: My impression: Complicated diverticulitis with micro perforation, small intramural abscess Assessment and Plan Assessment and plan (1) Diverticulitis of intestine with perforation and abscess: Code(s): K57.80 - Diverticulitis of intestine, part unspecified, with perforation and abscess without bleeding Status: Acute Assessment and Plan: exam largely benign, IV antibiotics, serial exams/labs, advanced to low-fiber diet as tolerated, discussed with patient if fails conservative treatment would need urgent surgery
[2024-09-20] MEDS: ACETAMINOPHEN 325 MG TABLET 650 MG PO (07:41)
[2024-09-20 14:00] VITALS: BP 140/74; PULSE 81; RESP 18; TEMP 36.6; O2SAT 96
[2024-09-20 20:40] VITALS: BP 123/74; PULSE 72; RESP 17; TEMP 36.7; O2SAT 98
[2024-09-21] MEDS: PIPERACILLN/TAZ 3.375GM/NS50ML 3.375 GM/50 ML BAG IVPB ×2 (00:08→05:30)
[2024-09-21 04:51] LABS: Hematocrit 47.4 % (42.0-52.0); Hemoglobin 15.9 g/dL (14.0-18.0); Mean Corpuscular HGB Conc 33.5 g/dl (32-36); Mean Corpuscular Hemoglobin 32.4 pg (26-34); Mean Corpuscular Volume 96.5 fl (80-100); Mean Platelet Volume 9.1 fl (7.4-10.4); Platelet Count Result 199 k/mm3 (150-375); Red Blood Count 4.91 M/mm3 (4.6-6.20); Red Cell Distribution Width 12.1 % (11.5-14.5); White Blood Count 9.7 K/mm3 (4.5-10.0)
[2024-09-21 04:58] VITALS: BP 119/59; PULSE 66; RESP 16; TEMP 36.3; O2SAT 98
[2024-09-21 05:07] LABS: Anion Gap 7 mmol/L (4-12); Blood Urea Nitrogen 10 mg/dL (9-20); Calcium 8.1 mg/dL (8.4-10.2); Carbon Dioxide 25 mmol/L (22-30); Chloride 106 mmol/L (98-107); Estimated CRCL calculation 90 ml/min; Estimated Glomerular Filt Rate > 60; Glucose 87 mg/dL (65-110); Potassium 4.1 mmol/L (3.4-5.0); Sodium 138 mmol/L (137-145)
--- NOTE | 2024-09-21 08:23 | PM.DS ---
DS: Admitting Diagnosis Discharge Date 09/21/2024 Admitting Diagnosis Acute diverticulitis DS: Discharge Diagnosis Discharge Diagnosis (1) Perforation of sigmoid colon due to diverticulitis: Code(s): K57.20 - Diverticulitis of large intestine with perforation and abscess without bleeding Status: Acute DS: Summary Hospital Course Hospital Course: Patient was admitted to the hospital on 09/19/2024. He was having lower abdominal pain and CT scan showed acute diverticulitis with focal perforation. Patient was admitted and started on IV Zosyn antibiotics. He quickly improved and his diet was slowly advanced to a low-fiber diet on hospital day 2. He remained pain-free and comfortable. He is discharged on hospital day 3. In good condition on oral antibiotics. Status at Discharge Functional status at discharge: independent ambulation Overall status at discharge: patient is progressing back to baseline Time Spent with Patient Time attestation: Total time spent providing and/or coordinating discharge services: Time spent: Less than 30 minutes Exam GI: Inspection: normal to inspection and non-distended GI Palp: Yes Soft to palpation and No Tenderness to palpation present (GI) DS: Data Data Completed and Pending Labs on day of discharge: Labs from last 24 hours 09/21/24 04:14 WBC 9.7 RBC 4.91 Hgb 15.9 Hct 47.4 MCV 96.5 MCH 32.4 MCHC 33.5 RDW 12.1 Plt Count 199 MPV 9.1 Sodium 138 Potassium 4.1 Chloride 106 Carbon Dioxide 25 Anion Gap 7 BUN 10 D Creatinine 1.01 Estim Creat Clear Calc 90 Estimated GFR > 60 Glucose 87 Calcium 8.1 L Preliminary micro results at discharge 09/19/24 18:58 Blood Culture - Preliminary Blood 09/19/24 19:26 Blood Culture - Preliminary Blood Discharge Plan Discharge Attending physician on discharge: Kailee Ferreira Discharging Clinician: Tr Roberson Anticipated Discharge Date/Time: 09/21/24 08:26 Patient Disposition: Home Activity: may shower and as tolerated Diet: low fiber Discharge Instructions: Stay on low-fiber diet until see Dr. Ferreira in 2 weeks. Call if severe abdominal pain should recur. Activity as tolerated. Take acetaminophen or ibuprofen as needed for mild abdominal pain. Patient Instructions: Antibiotic Form Patient Language: Uzbek Stand Alone Forms: General Discharge Information Follow-up/Referrals: Kailee Ferreira MD [Physician] - 2 Weeks (Call Dr. Ferreira's office to make appointment.) Discharge Medications: New amoxicillin-pot clavulanate 875-125 mg tablet 1 tablet PO Q12H Qty: 10 0RF Continued testosterone 100 mg/mL suspension 1.74 mg IM DAILY ZzzQuil 50 mg/30 mL liquid 25 mg PO HS melatonin 5 mg capsule 5 mg PO HS acetaminophen [Tylenol] 325 mg tablet 650 mg PO Q4-6H PRN (Reason: fever or pain) ibuprofen [Advil] 200 mg tablet 800 mg PO Q4H PRN (Reason: pain) Date of admission: 09/20/24 07:21 Primary Care Provider: PHYSICIAN,SUPERVISOR FRAME SAMPLE AND PATTERN Admitting Provider: Kailee Ferreira Attending physician on admission: Kailee Ferreira Condition: Improved
[2024-09-21 08:40] VITALS: PULSE 66; RESP 16; O2SAT 98
[2024-09-21] MEDS: SODIUM CHLORIDE 0.9% IV 1,000 ML 100 ML IV CONT (08:40)
== END 2024-09-21 10:10 | disposition home or self-care (01) | DRG 392 ==
LOC: ANHED 18:19 → ANH2MED 19:48
PROVIDERS: Physician Assistant; Admitting Provider Surgery; Emergency Provider Physician Assistant; Visit Provider Surgery
DX: K57.20 Diverticulitis of large intestine with perforation and abscess without bleeding (principal); Z90.49 Acquired absence of other specified parts of digestive tract
CPT/HCPCS: 36415; 74177; 80048; 80053; 81001; 83605; 83690; 85025; 85027; 87040; 96361; 96365; 96375; 99285; A9270; G0378; J2543; J7030; Q9967

== ENCOUNTER 2024-11-20 01:55 | Day surgery (SDC) | payer BC, SELFPAY ==
[2024-11-01 11:34] VITALS: BMI 26.9
--- NOTE | 2024-11-20 07:58 | P.PNAN_ITS ---
Anes - Initial Pre Proc Eval Procedure: Operation Date: 11/20/24 09:30 Proposed Procedures p Colonoscopy - Watson Dumont DO Date/Time: 11/20/24 07:58 Surgeon: Watson Dumont DO Pre Op Diagnosis: Perforated diverticultis Patient Data Age: 49 Gender: M Height: 1.88 m Weight: 95.3 kg Allergies Allergy/AdvReac Type Severity Reaction Status Date / Time No Known Allergies Allergy Verified 11/20/24 08:50 Home Medications ?Medication ?Instructions ?Recorded ?Confirmed ?Type testosterone 100 mg/mL 1.74 mg IM DAILY 09/19/24 11/01/24 History intramuscular suspension Patient hx anesthesia problems: none Family hx anesthesia problems: none Results Review: All pre-operative results and documents have been reviewed as part of the pre- operative evaluation. [facility] Past Medical History Medical History (Updated 11/20/24 @ 07:58 by Fermin Galo DO) Diverticulitis Surgical History Surgical History (Updated 11/20/24 @ 07:58 by Fermin Galo DO) Hx of tonsillectomy History of appendectomy Social History Social History Smoking status: Never smoker Alcohol intake: current Drinks per week: 2 Alcohol use details: 6 drinks occasionally Substance use: never Substance use type: does not use Do You Feel Safe in your Home?: Yes Lack of Transportation: No Lack of Food: Never True Current Housing: I Have Housing Concerned About Future Housing: No Difficulty Paying Gas/Electric Bills: No Difficulty Paying for Meds: No Currently Unemployed: No Education: Master's Degree or Higher Difficulty w/ Childcare or Family Care: No Living arrangements: with family Spiritual care concerns: No Anes - Eval Final PreProcedure Day of Procedure 11/20/24 07:58 Patient weight: overweight Heart: regular rate and rhythm Lungs: clear to auscultation Airway: Mallampati scale class II Neurological: alert and oriented Last oral intake: >/= 8 hours ASA classification: II Emergent: no Anesthetic plan: proceed Anesthesia type and monitoring: general GIVS and standard monitoring Results Review: All pre-operative results and documents have been reviewed as part of the pre- operative evaluation. Informed Consent: The patient's anesthetic plan and its attendant risks and benefits were discussed with the patient/family/POA. Questions were solicited and answers provided to the satisfaction of the patient/family/POA.
[2024-11-20 08:50] VITALS: BP 113/74; PULSE 78; RESP 18; TEMP 36.3; O2SAT 99
[2024-11-20] MEDS: LACTATED RINGERS 1,000 ML 150 ML IV CONT (08:59)
--- NOTE | 2024-11-20 09:40 | PM.IMHP ---
H&P: HPI History of Present Illness Date/Time: 11/20/24 09:40 Chief Complaint: diverticulitis Narrative: this is a 49-year-old man who presents for colonoscopy. He had a recent hospitalization for diverticulitis about 2 months ago. He has recovered since then. He is no longer complaining of any abdominal pain. He denies hematochezia or melena. He denies family history of colon cancer. He has never had a colonoscopy in the past. Review of Systems Review of Systems: All systems reviewed & are unremarkable except as noted in HPI and below Constitutional: Constitutional: Denies chills, Denies fever(s), Denies headache(s) and Denies weight loss Eyes: Eyes: Denies change in vision ENT: Denies dizziness, Denies headache(s), Denies neck mass and Denies throat swelling Cardiovascular: Cardiovascular: Denies chest pain, Denies lightheadedness and Denies dyspnea Respiratory: Respiratory: Denies cough, Denies dyspnea and Denies wheezing Gastrointestinal: Gastrointestinal: Denies abdominal pain, Denies change in bowel habits, Denies nausea and Denies vomiting Genitourinary: Genitourinary: Denies hematuria and Denies dysuria Musculoskeletal: Musculoskeletal: Reports as per HPI Integumentary/Breasts: Skin/Breast: Reports as per HPI Neurologic: Denies dizziness and Denies headache(s) Allergic/Immunologic: Allergic/Immunologic: Denies throat swelling and Denies wheezing [facility] Past Medical History Medical History (Updated 11/20/24 @ 07:58 by Fermin Galo DO) Diverticulitis Surgical History Surgical History (Updated 11/20/24 @ 07:58 by Fermin Galo DO) Hx of tonsillectomy History of appendectomy Social History Social History Smoking status: Never smoker Alcohol intake: current Drinks per week: 2 Alcohol use details: 6 drinks occasionally Substance use: never Substance use type: does not use Do You Feel Safe in your Home?: Yes Lack of Transportation: No Lack of Food: Never True Current Housing: I Have Housing Concerned About Future Housing: No Difficulty Paying Gas/Electric Bills: No Difficulty Paying for Meds: No Currently Unemployed: No Education: Master's Degree or Higher Difficulty w/ Childcare or Family Care: No Living arrangements: with family Spiritual care concerns: No Meds Home Medications and Allergies Home Medications ?Medication ?Instructions ?Recorded ?Confirmed ?Type testosterone 100 mg/mL 1.74 mg IM DAILY 09/19/24 11/01/24 History intramuscular suspension Allergies Allergy/AdvReac Type Severity Reaction Status Date / Time No Known Allergies Allergy Verified 11/20/24 08:50 Vital Signs Vital Signs - 24 hr 11/20/24 08:50 Temperature 97.4 F L Pulse Rate 78 Respiratory Rate 18 Blood Pressure 113/74 Pulse Oximetry 99 Oxygen Delivery Room Air Exam Const: General: no acute distress and alert Orientation/consciousness: patient oriented x3 HENMT: Head: normocephalic and atraumatic Ears: hearing grossly normal bilaterally Face/Nose/Sinus: Normal nares present Mouth: Yes Normal oral and palatal mucosa present Eyes: Periorbital: periorbital findings normal Sclera: sclerae normal EOM: EOMs intact bilaterally Neck: Neck: normal visual inspection, no lymphadenopathy and trachea midline Chest: Chest palpation & inspection: normal inspection of the chest Resp: Effort & Inspection: normal respiratory effort Auscultation: clear to auscultation bilaterally Cardio: Jugular venous distension: no JVD Rate: regular rate Rhythm: regular rhythm Heart sounds: S1 normal heart sound present and S2 normal heart sound present Peripheral pulses: Peripheral pulses 2+ throughout GI: Inspection: normal to inspection GI Palp: Yes Soft to palpation, No Tenderness to palpation present (GI), No Guarding due to palpation present (GI) and No Rebound tenderness present Percussion: Yes normal to percussion Auscultation: normal bowel sounds : General: Yes no CVA tenderness Back/Spine/Pelvis: Back: no CVA tenderness Neuro: General: patient oriented x3, no focal motor deficits and CN's II-XI intact bilaterally Cognition (Neuro): normal cognition Speech: normal speech Motor exam (neuro): 5/5 motor strength present throughout Extrem: General: capillary refill normal and no clubbing, cyanosis or edema Assessment and Plan Assessment and plan (1) Perforation of sigmoid colon due to diverticulitis: Code(s): K57.20 - Diverticulitis of large intestine with perforation and abscess without bleeding Status: Acute Assessment and Plan: I have recommended colonoscopy. I have discussed the procedure, risks, benefits, and alternatives. Questions were answered. Patient is agreeable to proceed.
--- NOTE | 2024-11-20 10:13 | S_PTH ---
PATIENT: Julius Dong LOC: [facility] #:[id number] AGE/SX: 49/M ROOM: RE11/20/[address]: Watson Dumont DO : 1975 BED: DIS: 11/20/2024 SPEC #: [id number] RECD: 11/20/24 10:43 STATUS: SHIRLEY REMaris #: [id number] JOSE: 11/20/24 10:[address]: Watson Dumont DEPT: [facility] Surgical RECD BY: Azalea Abrams ENTERED: 11/20/24 10:43 SP TYPE: Surgical OTHR DR: GOLD LETTERER PHYSICIAN Tissues: A - Rectal Polyp Procedures: Hematoxylin and Eosin Stain Gross and Microscopic Level 4
[2024-11-20 10:16] VITALS: BP 109/72; PULSE 65; RESP 18; O2SAT 100
[2024-11-20 10:26] VITALS: BP 110/74; PULSE 69; RESP 17; O2SAT 99
[2024-11-20 10:36] VITALS: BP 111/77; PULSE 69; RESP 19; O2SAT 99
--- NOTE | 2024-11-20 10:41 | SUR.PHASEII ---
Patient refused wheelchair upon discharge. This RN watched patient ambulate to vehicle.
== END 2024-11-20 10:41 | disposition home or self-care (01) ==
PROVIDERS: Visit Provider Surgery
PROC: 0DJD8ZZ Inspection of Lower Intestinal Tract, Via Natural or Artificial Opening Endoscopic (ICD-10-PCS; CPT 45378; principal; 2024-11-20 09:30)
DX: Z09 Encounter for follow-up examination after completed treatment for conditions other than malignant neoplasm (principal); K57.30 Diverticulosis of large intestine without perforation or abscess without bleeding; K62.1 Rectal polyp; Z98.890 Other specified postprocedural states
CPT/HCPCS: 45380; 88305; J2003; J2704; J7120